=== PATIENT | male | born 1955 | race Caucasian/White ===

== ENCOUNTER 2016-12-16 08:24 | Inpatient (IN) | payer BC ==
[2016-11-17 14:06] VITALS: Ht 180.3 cm; Wt 154.0 kg
--- NOTE | 2016-11-17 14:37 | PAT Medication Instructions ---
Service Date Nov 17, 2016. Current Home Medication List Cyclobenzaprine Hcl (Flexeril), Unknown Dose PO BID Ibuprofen (Advil), 200-600 MG PO Q6 Medication Instructions For Your Scheduled Surgery - Check with surgeon for instructions: Ibuprofen (Advil), 200-600 MG PO Q6 - Hold the following medications the morning of surgery: Cyclobenzaprine Hcl (Flexeril), Unknown Dose PO BID - Take the following medications as scheduled the night before surgery: Cyclobenzaprine Hcl (Flexeril), Unknown Dose PO BID If you have any questions please call us at [phone] (Radha Salinas PA-C) or [phone] or [phone]
[2016-11-17 15:24] LABS: BASO % 0.3 %; BASO ABS # 0.02 K/uL (0-0.2); COMPLETE YES; HEMATOCRIT 41.5 % (42-52); IG% 0.3 %; LYMPH % 28.3 %; LYMPH ABS # 1.99 K/uL (1.2-3.4); MEAN CELL VOLUME 88.1 fL (80-100); MEAN CORPUSCULAR HEMOGLOBIN 29.3 pg (25-34); MEAN CORPUSCULAR HGB CONC 33.3 g/dl (32-36); MEAN PLATELET VOLUME 10.4 fL (7.4-10.4); MONO % 9.1 %; PLATELET COUNT 227 K/uL (130-400); RED BLOOD COUNT 4.71 M/uL (4.7-6.1); WHITE BLOOD COUNT 7.03 K/uL (4.8-10.8)
--- NOTE | 2016-11-17 15:29 | DIAGNOSTIC IMAGING REPORT ---
CHEST PREADMISSION(PA/LAT) CLINICAL HISTORY: Preoperative chest COMPARISON STUDY: No previous studies for comparison. FINDINGS: The cardiac and mediastinal contours are normal. There is no evidence of focal pulmonary consolidation. There is no evidence of failure. No pleural effusions are visualized.[ Slight prominence of the basal markings likely relates to technical factors given the patient's large body habitus. IMPRESSION: No active disease in the chest. Electronically signed by: Justin Forte M.D. 11/17/2016 3:28 PM Dictated Date/Time: 11/17/2016 3:27 PM
[2016-11-17 15:32] LABS: PROTHROMBIN TIME (PATIENT) 10.4 SECONDS (9.0-12.0)
[2016-11-17 15:53] LABS: BUN/CREATININE RATIO 9.9 (10-20); C-REACTIVE PROTEIN 0.32 mg/dl (0-0.29); CALCIUM 8.7 mg/dl (8.5-10.1); CREATININE 0.96 mg/dl (0.60-1.40); POTASSIUM 4.1 mmol/L (3.5-5.1)
--- NOTE | 2016-12-10 16:34 | HISTORY & PHYSICAL EXAMINATION ---
DATE OF ADMISSION: 12/16/2016 CHIEF COMPLAINT: Bilateral knee pain and discomfort, left side greater than right. 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 He has got a 5+ year history of bilateral knee pain and discomfort, left side greater than the right. He has been treated by my partner Dr. Camarillo for this over the past several years. He has had injections and medicines which provided very temporary relief. Pain has become more incapacitating. He has difficulty doing his job. He is not interested in more conservative care and would like to have his left knee replaced. The pain is mostly medial. It is increased with weightbearing. He limps every step and the long of the day goes the more he limps. PAST MEDICAL HISTORY: Obesity with a BMI of 47.4. PAST SURGICAL HISTORY: None. ALLERGIES: None. CURRENT MEDICATIONS: Include unspecified NSAIDS. SOCIAL HISTORY: 61-year-old male patient from [place]. He is . FAMILY HISTORY: Noncontributory. REVIEW OF SYSTEMS: Negative for diabetes, neurologic problems, vascular problems, bleeding disorders. Denies any chest pain or shortness of breath. No history of DVT or PE. PHYSICAL EXAMINATION: GENERAL: Reveals a healthy, pleasant, alert, middle-aged male. He looks to be in good health. HEENT: Benign. NECK: Supple. No lymphadenopathy. LUNGS: Clear to auscultation. HEART: Regular rate and rhythm. ABDOMEN: Soft, nontender, nondistended. EXTREMITIES: Grossly neurovascularly intact except as follows: Examination of both knees reveals the patient walks with a waddling gait. He has got varus alignment to both knees. He does have a little bit of a varus thrust, left side more than the right with weightbearing. Small knee effusions bilaterally. Range of motion is symmetric with 5 degrees short of full extension to 120 degrees of flexion. There is no clinical instability. He has got no pain with hip motion. X-RAYS: X-rays of both knees reveal advanced bilateral knee DJD. He has got complete loss of his medial joint space bilaterally. He has got a little bit of tibial femoral subluxation. He has got osteophytes in the medial compartment. He does have some patella baja. ASSESSMENT: A 61-year-old male with bilateral longstanding knee degenerative joint disease, left side greater than the right. He has failed conservative care and would like to have his left knee replaced. PLAN: We are going to take him to the operating room and do a left total knee replacement. The risks and benefits of this procedure were explained to the patient including but not limited to DVT, PE, , infection, neurological injury, vascular injury, bleeding problem, pain, limited motion, stiffness, failure to relieve symptoms, incomplete relief of symptoms, need for further surgery in the future, fracture, leg length inequality, nerve palsy, need for revision surgery, particularly his young age. The patient understands and desires. Informed consent was obtained. We may put a stem in his tibia due to his large size. We will make that judgment at the time of surgery. The patient had preoperative workup. Chest x-ray showed no acute disease. EKG showed normal sinus rhythm with some occasional premature supraventricular complexes. Labs were all relatively normal. He is planning to be discharged to home and either do home health or outpatient therapy. SARAH
[2016-12-16] VITALS (8 sets, daily range): BP systolic 105–147; BP diastolic 61–83; PULSE 73–97; TEMP 36.4–37.2; O2SAT 93–99
[~2016-12-16] VITALS: Ht 180.3 cm; Wt 154.0 kg
[~2016-12-16 08:24] MED LIST: ACETAMINOPHEN 500 MG TAB PO SCH; BUPIVACAINE 0.25% 30 ML VIAL ONE; BUPIVACAINE 0.5 % 5 MG/1 ML PF 10ML VIAL ONE; BUPIVACAINE LIPOSOME 266 MG, BUPIVACAINE/EPINEPHRINE INJ 50 ML, SODIUM CHLORIDE 0.9% PF... INFIL SCH; CEFAZOLIN 3000 MG/65 ML D5W 65 ML IV SCH; CYCL5TAB PO; FAMOTIDINE 20 MG TAB PO SCH; GABAPENTIN 300 MG CAP PO SCH; IBUP-1050 PO; LACTATED RINGER'S 1000ML 1,000 ML IV SCH; LACTATED RINGER'S 1000ML 500 ML IV ONE; LACTATED RINGER'S 1000ML IV SCH; METOCLOPRAMIDE HCL 10 MG TAB PO SCH; SCOPOLAMINE 1.5 MG TDSY TD SCH; TRANEXAMIC ACID INJ 1,000 MG in SODIUM CHLORIDE 0.9% 100ML 100 ML IV SCH
--- NOTE | 2016-12-16 08:54 | History & Physical Bridge Note ---
H&P Re-Evaluation Bridge Note: I have examined the patient, reviewed the History & Physical and in the interval since the performance of the History & Physical I have noted the following changes of clinical significance: No changes noted
[2016-12-16] MEDS ORDERED: MIDAZOLAM HCL 1 MG/ML 2ML VIAL ONE (09:50)
[2016-12-16] MEDS ORDERED: EpHEDrine SULFATE INJ 50 MG/ML AMP IV PRN (10:30)
[2016-12-16] MEDS ORDERED: ATROPINE SULFATE 0.1 MG/ML 5ML SYR IV PRN (10:30)
[2016-12-16] MEDS ORDERED: PHENYLEPHRINE 100MCG/ML 5ML SYR IV PRN (10:30)
[2016-12-16] MEDS ORDERED: ONDANSETRON INJ 2 MG/ML 2 ML VIAL IV PRN ×2 (10:30→13:00)
[2016-12-16] MEDS ORDERED: HYDROmorphone INJ 2 MG/ML SYR/VIAL IV PRN (10:30)
[2016-12-16] MEDS ORDERED: BUPIVACAINE/EPINEPHRINE 0.25% 1:200,000 30 ML VIAL ONE (10:37)
[2016-12-16] MEDS ORDERED: BACITRACIN 50000 UNIT VIAL ONE (10:37)
[2016-12-16] MEDS ORDERED: SODIUM CHLORIDE 0.9% PF 50 ML VIAL ONE (10:37)
[2016-12-16] MEDS ORDERED: BUPIVACAINE LIPOSOME 1/3% 266 MG/20 ML VIAL INFIL ONE (10:37)
[2016-12-16] MEDS ORDERED: PROPOFOL IV EMULSION 10 MG/ML 20 ML VIAL IV ONE (11:11)
[2016-12-16] MEDS ORDERED: PHENYLEPHRINE 100MCG/ML 5ML SYR ONE (11:11)
[2016-12-16] MEDS ORDERED: LIDOCAINE HCL 2% 2 ML VIAL (20MG/ML) ONE (11:14)
--- NOTE | 2016-12-16 12:47 | [facility] Post Operative Brief Note ---
Immediate Operative Summary Operative Date Dec 16, 2016. Pre-Operative Diagnosis Degenerative joint disease, left knee Post-Operative Diagnosis Same as preop Procedure(s) Performed Left total knee arthroplasty Surgeon Dr. Ramon Home Health Care Coordinator Surgeon(s) Samia Gilman PA-C Estimated Blood Loss 50 cc Findings Left Knee DJD Fluids (cc crystalloids) 1500 Specimens A: left knee bone and tissue Drains None Anesthesia Spinal Complication(s) None Disposition Recovery Room / PACU
[2016-12-16] MEDS ORDERED: DiphenhydrAMINE HCL 50 MG/ML VIAL IV PRN (13:00)
[2016-12-16] MEDS ORDERED: BISACODYL 10 MG SUPP PR PRN (13:00)
[2016-12-16] MEDS ORDERED: ZOLPIDEM TARTRATE 5 MG TAB PO PRN (13:00)
[2016-12-16] MEDS ORDERED: SILVER SULFADIAZINE 1% CR 50 GM JAR EXT PRN (13:00)
[2016-12-16] MEDS ORDERED: METOCLOPRAMIDE HCL INJ 5 MG/ML 2 ML VIAL IV PRN (13:00)
[2016-12-16] MEDS ORDERED: ALUMINUM/MAGNESIUM/SIMETH (MAALOX MAX) 30 ML UDC PO PRN (13:00)
[2016-12-16] MEDS ORDERED: MAGNESIUM HYDROXIDE SUSP 30 ML UDC PO PRN (13:00)
[2016-12-16] MEDS ORDERED: TAMSULOSIN HCL 0.4 MG CAP PO PRN (13:00)
[2016-12-16] MEDS ORDERED: MoRPHine SULFATE 4 MG/ML 1 ML CARP\\VIAL IV PRN (13:00)
--- NOTE | 2016-12-16 13:45 | DIAGNOSTIC IMAGING REPORT ---
LEFT KNEE 1 OR 2 VIEWS ROUTINE CLINICAL HISTORY: AP/LATERAL IN PACU LEFT KNEE postoperative evaluation COMPARISON: None. DISCUSSION: Evidence for a total left knee replacement. Good contact between prosthetic and underlying bone. Expected soft tissue postoperative change IMPRESSION: Anatomic alignment status post total left knee replacement Electronically signed by: Dinesh Fierro M.D. 12/16/2016 1:44 PM Dictated Date/Time: 12/16/2016 1:42 PM
[2016-12-16] MEDS: OXYCODONE HCL IR 5 MG TAB (IMMEDIATE RELEASE) PO PRN ×2 (14:18→19:22)
[2016-12-16] MEDS: D5W AND 1/2NSS + 20MEQ KCL 1,000 ML IV SCH ×2 (15:33→21:49)
[2016-12-16] MEDS: ACETAMINOPHEN 500 MG TAB PO SCH ×2 (15:34→21:49)
[2016-12-16] MEDS: CHECK SCOPOLAMINE PATCH PLACEMENT SCH ×2 (15:34→23:30)
[2016-12-16] MEDS: KETOROLAC TROMETHAMINE 30 MG/ML VIAL IV. SCH ×2 (15:34→21:49)
--- NOTE | 2016-12-16 15:43 | Anesthesiology Progress Note ---
Anesthesia Post Op Note Date & Time Dec 16, 2016 at 15:43 Vital Signs Pain Intensity: 5.0 Vital Signs Past 12 Hours Date Time Temp Pulse Resp B/P Pulse Ox O2 Delivery O2 Flow Rate FiO2 12/16/16 15:13 36.5 87 18 125/77 94 Nasal Cannula 1.5 12/16/16 14:32 36.5 88 17 147/83 99 Room Air 12/16/16 13:45 88 16 132/83 97 Nasal Cannula 2 12/16/16 13:35 86 16 132/76 97 Nasal Cannula 2 12/16/16 13:25 36.3 86 20 119/73 96 Nasal Cannula 2 12/16/16 13:15 89 18 135/61 97 Nasal Cannula 2 12/16/16 13:05 94 16 99/69 95 Nasal Cannula 2 12/16/16 12:55 36.6 93 16 89/62 100 Mask 10 12/16/16 08:56 36.8 86 16 132/81 94 Room Air Notes Mental Status: alert / awake / arousable, participated in evaluation Pt Amnestic to Procedure: Yes Nausea / Vomiting: adequately controlled Pain: adequately controlled Airway Patency, RR, SpO2: stable & adequate BP & HR: stable & adequate Hydration State: stable & adequate Anesthetic Complications: no major complications apparent
[2016-12-16] MEDS: FERROUS GLUCONATE 324 MG TAB PO SCH (17:59)
[2016-12-16] MEDS: CEFAZOLIN IV 2,000 MG in DEXTROSE 5% 50ML 50 ML IV SCH (18:00)
[2016-12-16] MEDS ORDERED: TRANEXAMIC ACID INJ 1,000 MG in SODIUM CHLORIDE 0.9% 100ML 100 ML IV SCH (19:00)
--- NOTE | 2016-12-16 19:33 | OPERATIVE REPORT ---
DATE OF OPERATION: 12/16/2016 SURGEON: Larry Ramon MD FORENSIC ACCOUNTANT: CALRA Prabhakar PREOPERATIVE DIAGNOSIS: Left knee degenerative joint disease. POSTOPERATIVE DIAGNOSIS: Same. PROCEDURE PERFORMED: Left cemented posterior stabilized total knee arthroplasty. COMPLICATIONS: None. ESTIMATED BLOOD LOSS: 50 mL. FLUID REPLACEMENT: 1500 mL crystalloid fluid replacement. TOURNIQUET TIME: 60 minutes at 350 mmHg. ANESTHESIA: Spinal with adductor canal block. DRAINS: None. SPECIMENS: Left knee sent for pathology. OPERATIVE INDICATIONS: The patient is a 61-year-old male who has had a fairly long history of bilateral knee pain and discomfort, left side a bit worse than the right. He has been through extensive conservative treatment by my partner, Dr. Camarillo. He failed conservative care. He was not interested in any further conservative management. He elected to do a left total knee replacement. OPERATIVE FINDINGS: Operative findings revealed advanced left knee DJD. 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 He had a fixed varus deformity to his knee. Moderate-sized joint effusion. Large soft tissue envelope. OPERATIVE IMPLANTS: Operative implants consisted of: 1. Biomet Vanguard size 65 left posterior stabilized femoral component. 2. Biomet size 75 tibial tray. 3. A 10-mm posterior stabilized polyethylene insert. 4. A 31 x 8 all poly patella. OPERATIVE PROCEDURE: The patient was taken to the operating room, identified and placed on the operating table in supine position. All contact areas were appropriately padded. IV antibiotics were provided by the anesthesia team. A spinal anesthetic and adductor canal block had been provided by the anesthesia team in the holding area. A Vance catheter was placed in sterile fashion. Left thigh tourniquet was then placed and left lower extremity was then prepped and draped in the usual sterile fashion. The left leg was elevated and exsanguinated using Esmarch and tourniquet was placed at 350 mmHg. An anterior approach of the left knee was then performed through a longitudinal incision centered over the patella. Sharp dissection was carried out through the subcutaneous tissues down to the level of the extensor mechanism. A medial parapatellar arthrotomy incision was made. Of note, his quad tendon was extremely short and small, only a couple of centimeters in length. I did extend this up into the muscle as a result. Some subperiosteal dissection was carried out medially. The fat pad was resected from beneath the patellar tendon. The lateral patellofemoral ligament was released. The patella was everted and the knee was flexed. The osteophytes were taken off the distal femur. The ACL and PCL were then released from the distal femur and the tibia subluxated anteriorly. The external tibial alignment jig was then placed in the anterior face of the tibia and adjusted 14 mm medially. Proximal tibial cut was made to remove about 2 mm of bone from the most deficient aspect of the medial tibial plateau. The tibia was then sized to a size 75. Some osteophytes were taken off medial and posteromedially. Attention was then drawn to the femur. The distal femur was entered with a sharp drill bit. Intramedullary canal was suctioned. A left 6-degree valgus cutting guide was placed. Distal femoral cutting block was pinned in place. Distal femoral cut was made to take an additional 3 mm of bone off the distal femur. We tried to minimize his distal cut due to its patella baja. The femur was then sized to a size 65. We did downsize this just slightly. The AP cutting block was pinned parallel to the epicondylar axis, which was 4 degrees of external rotation. The anterior cut, anterior chamfer, posterior cut, and posterior chamfer cuts were made. Box cutting guide was placed and adjusted slightly lateral and the box cut was made. The knee was flexed. The remnants of the medial and lateral menisci were excised. The osteophytes were taken off the posterior aspect of the femur. A trial femoral component was placed. Tibial tray was pinned in maximum external rotation and drill and stem punch were used to create defect in proximal tibia for the tibial tray. The knee was then trialed and the 10-mm insert fit most appropriately. Attention was then drawn to the patella. The patella was cleaned of all soft tissues. Patella thickness measured 22 mm in thickness and was cut down to 14. It was sized to a size 31 patella. Of note, the patella was very short in its superior to inferior directions and very oblong. We did not have to downsize this as a result. We drilled for the 31 patella. Lateral osteophyte was removed. Patella button was placed. Knee was taken through range of motion and the patella tracked well with no thumbs test. Attention was then drawn toward placement of permanent components. All trial components were removed. A bone plug was placed in the distal femur to limit blood loss. A double batch of Palacos G cement was mixed. A left size 65 posterior stabilized femoral component, size 75 tibial tray, a 10-mm stable posterior stabilized polyethylene insert, and a 31 x 8 all poly patella then cemented in place. Knee was brought out into full extension until cement hardened. A final cement check was then performed. The pericapsular tissues were injected with 100 mL of a combination of 20 mL of Exparel, 30 mL of normal saline, and 50 mL of 0.25% Marcaine with epinephrine. The patient did receive 1 gram of tranexamic acid. The tourniquet was let down for final tourniquet time of 60 minutes. Hemostasis was assured with use of electrocautery. The wound was once again irrigated. The extensor mechanism was then closed with a combination of #1 PDS suture and #1 Vicryl suture in a [id number] fashion. The extensor mechanism was checked and found to be intact. The subcutaneous tissues were then closed with 2-0 Dexon suture in a buried interrupted fashion. Skin was closed skin mary. Leg was then cleaned and dried and a sterile dressing with Xeroform, 4 x 4's, sterile cast padding and an Henrik bandage were applied. The patient was then transferred to the recovery room in stable condition. The patient tolerated the procedure well with no complications. All needle and sponge counts were correct at the end of the operation. I attest to the content of the Intraoperative Record and any orders documented therein. Any exceptio ns are noted below.
[2016-12-16] MEDS: ASPIRIN 325 MG ECTAB PO SCH (20:59)
[2016-12-16] MEDS: DOCUSATE SODIUM 100 MG CAP PO SCH (21:00)
[2016-12-16] MEDS: TAPENTADOL ER 50 MG TABCR PO SCH (21:00)
[2016-12-17] MEDS: CEFAZOLIN IV 2,000 MG in DEXTROSE 5% 50ML 50 ML IV SCH (01:51)
[2016-12-17 03:14] VITALS: BP 115/68; PULSE 80; TEMP 37; O2SAT 94
[2016-12-17] MEDS: D5W AND 1/2NSS + 20MEQ KCL 1,000 ML IV SCH ×2 (03:49→11:00)
[2016-12-17] MEDS: KETOROLAC TROMETHAMINE 30 MG/ML VIAL IV. SCH ×5 (03:49→21:42)
[2016-12-17] MEDS: ACETAMINOPHEN 500 MG TAB PO SCH ×3 (05:39→21:42)
[2016-12-17 06:30] LABS: HEMATOCRIT 38.8 % (42-52); MEAN CELL VOLUME 89.2 fL (80-100); MEAN CORPUSCULAR HEMOGLOBIN 29.4 pg (25-34); MEAN PLATELET VOLUME 10.4 fL (7.4-10.4); PLATELET COUNT 227 K/uL (130-400); RED BLOOD COUNT 4.35 M/uL (4.7-6.1); WHITE BLOOD COUNT 8.28 K/uL (4.8-10.8)
[2016-12-17 07:05] LABS: BUN/CREATININE RATIO 15.1 (10-20); CALCIUM 8.2 mg/dl (8.5-10.1); POTASSIUM 4.2 mmol/L (3.5-5.1)
[2016-12-17 07:56] VITALS: BP 120/70; PULSE 87; TEMP 36.7; O2SAT 94
[2016-12-17] MEDS: CHECK SCOPOLAMINE PATCH PLACEMENT SCH ×2 (08:00→15:10)
[2016-12-17] MEDS ORDERED: OXYC-57 PO (09:00)
[2016-12-17] MEDS ORDERED: MORP15TA19 PO (09:00)
[2016-12-17] MEDS ORDERED: ASPEC325 PO (09:00)
[2016-12-17] MEDS: ASPIRIN 325 MG ECTAB PO SCH ×2 (09:01→21:40)
[2016-12-17] MEDS: MULTIVITAMIN TAB PO SCH (09:01)
[2016-12-17] MEDS: DOCUSATE SODIUM 100 MG CAP PO SCH ×2 (09:01→21:40)
[2016-12-17] MEDS: PANTOprazole SOD 40 MG TAB PO SCH (09:01)
[2016-12-17] MEDS: FERROUS GLUCONATE 324 MG TAB PO SCH ×3 (09:02→18:35)
--- NOTE | 2016-12-17 09:03 | Discharge Instructions ---
Discharge Instructions Admission Reason for Admission: Left Knee Osteoarthritis, Knee Pain Discharge Discharge Diagnosis / Problem: Left Knee Replacement Discharge Goals Goal(s): Decrease discomfort, Improve function, Increase independence, Improve disease control, Therapeutic intervention Activity Recommendations Activity Limitations: per Instructions/Follow-up section Weightbearing Status: Left weightbearing . Instructions / Follow-Up Instructions / Follow-Up ACTIVITY RECOMMENDATIONS: Physical Therapy: * You will go to physical therapy three times each week for four to six weeks after your surgery in order to regain your knee range of motion and to retrain your knee to work properly. * It is just as important to make sure you are getting your knee perfectly straight as it is to regain your knee bend. * Taking a pain pill an hour before therapy can help you have a more productive and comfortable therapy session. Home Exercise: * You were shown a series of exercises (heel props, heel slides, etc.) in the hospital. Do these exercises three to four times each day including the exercises you were shown in physical therapy. Walking: * Get up and walk several times each day. For the first four weeks, try not to stand or walk for more than one hour at a time. If you do stand or walk for more than one hour, you will not hurt anything, but your knee and leg will likely swell. * As you feel comfortable, you may change from the walker or crutches to a cane and then to independent walking. MEDICATIONS: New Medicine: * You will likely be taking one or more of these medications: 1. MS Contin - A long-acting pain medication. Take 1 tablet twice a day for the first ten days to decrease your baseline level of pain. 2. Percocet - A quick and shorter-acting pain medication. Take one to two tablets every four to six hours to lessen your pain. 3. Aspirin - Thins your blood to lessen the chance of forming a blood clot. * The most common side effects of pain medicine and iron are nausea and constipation. If nausea or constipation is too much of a problem or if you have any questions about your new medicines or doses, call [facility] at . We will try to help you manage these issues. VERY IMPORTANT TO READ AND REVIEW" Pain: * The immediate post-operative period after knee replacement surgery is often quite painful. * You are given a prescription for pain medicine. You should take it, as directed, when you need it, especially before physical therapy and before going to bed. Pain that interferes with sleep is very common and can last several months. * You will likely need pain medicine for the first four to six weeks. It will not stop all of the pain. The pain will lessen and as you feel better, you may change to milder pain medicine such as Tylenol. * The most common side effects of pain medicine are nausea and constipation, so don't take more than you need. SPECIAL CARE INSTRUCTIONS: TEDs/Elastic Stockings: * The white elastic stockings help limit swelling and prevent blood clots from forming in your legs. The more you wear them, the more they work. * Wear them for six weeks after knee replacement surgery and four weeks after partial knee replacement. Prevention of Infection: * Take antibiotics one hour before any dental cleaning, dental work, urological procedure, gastrointestinal procedure or any invasive surgery in order to prevent your new joint from getting infected. * You may get the antibiotics from the doctor performing the procedure or you may call our office at before and we will call in a prescription to the pharmacy of your choice. Things to Watch For: * Drainage from the incision site that occurs more than one week after your surgery. * Severely increased knee/leg pain or swelling. * Increased redness at the incision site. * Fever above 102 degrees Fahrenheit. * Unusual chest pain or shortness of breath. * Unusual pain or burning with urination. Call [facility] at with any of the above problems or if you have any questions about your medicines or recovery. FOLLOW UP VISIT: Make an appointment to see your doctor for approximately two weeks after surgery for a progress check and staple removal by calling the office at . Current Hospital Diet Patient's current hospital diet: Regular Diet Discharge Diet Recommended Diet: Regular Diet Procedures Procedures Performed: Left total knee arthroplasty Pending Studies Studies pending at discharge: no Medical Emergencies . Who to Call and When: Medical Emergencies: If at any time you feel your situation is an emergency, please call [phone] immediately. . Non-Emergent Contact Non-Emergency issues call your: Surgeon . "Provider Documentation" section prepared by Larry Ramon. VTE Core Measure Inpt VTE Proph given/why not?: Other Anticoagulation, T.E.D. Stockings, SCD's
[2016-12-17] MEDS: TAPENTADOL ER 50 MG TABCR PO SCH ×2 (09:04→21:40)
[2016-12-17] MEDS: OXYCODONE HCL IR 5 MG TAB (IMMEDIATE RELEASE) PO PRN ×3 (09:06→21:41)
[2016-12-17 10:15] VITALS: BP 129/76; PULSE 84; O2SAT 98
[2016-12-17 11:53] VITALS: BP 125/80; PULSE 72; TEMP 36.4; O2SAT 91
[2016-12-17 14:58] VITALS: BP 128/79; PULSE 87; TEMP 36.5; O2SAT 98
--- NOTE | 2016-12-17 19:34 | PROGRESS NOTE ---
DATE: 12/17/2016 SUBJECTIVE: A 61-year-old white male, postop day #1 from a left knee replacement. He is doing well. Therapy has gone well. Pain is controlled. He denies any chest pain or shortness of breath. Not feeling dizzy or lightheaded. OBJECTIVE: VITAL SIGNS: Temperature 36.5. Vital signs are stable. GENERAL: Reveals a healthy, pleasant, middle-aged male. He is sitting up in bed and I had to wake him this evening when I visited him. LUNGS: Clear to auscultation. HEART: Regular rate and rhythm. ABDOMEN: Soft, nontender, nondistended. EXTREMITIES: Grossly neurovascularly intact except as follows: Examination of the left lower extremity reveals the leg to be well aligned. He can dorsiflex and plantarflex his foot appropriately. He is neurologically intact. The dressing is clean, dry and intact. LABORATORIES: Hemoglobin 12.8, hematocrit 38.8. Electrolytes are stable. ASSESSMENT: A 61-year-old gentleman postoperative day #1 from a left knee replacement, doing pretty well. Pain is controlled. Therapy went well. PLAN: 1. DVT prophylaxis including thigh-high TEDs, SCDs and aspirin twice a day. 2. PT/OT. Weight-bear as tolerated. Left total knee protocol. 3. Pain control, doing well with current pain regimen. 4. Disposition: Plan to discharge to home with some home health once adequately recovered.
[2016-12-17 23:07] VITALS: BP 138/79; PULSE 99; TEMP 36.9; O2SAT 97
[2016-12-18] MEDS: CHECK SCOPOLAMINE PATCH PLACEMENT SCH (00:14)
[2016-12-18] MEDS: KETOROLAC TROMETHAMINE 30 MG/ML VIAL IV. SCH ×2 (03:57→09:18)
[2016-12-18] MEDS: ACETAMINOPHEN 500 MG TAB PO SCH (05:30)
--- NOTE | 2016-12-18 07:14 | PROGRESS NOTE ---
DATE: 12/18/2016 SUBJECTIVE: 61-year-old gentleman postop day 2 from a left total knee replacement. He is doing pretty well. Pain is controlled. Denies any chest pain or shortness of breath. OBJECTIVE: VITAL SIGNS: Temperature 36.9. Vital signs stable. PHYSICAL EXAMINATION: EXTREMITIES: Examination of leg reveals the patient is sitting up in his bedside chair working on his exercises. Dressing is clean, dry, and intact. He is neurologically intact. ASSESSMENT: 61-year-old gentleman postop day 2 from a left knee replacement, doing pretty well. PLAN: 1. DVT prophylaxis including thigh-high TEDs, SCDs, and aspirin twice a day. 2. PT/OT. Weightbearing as tolerated. Left total knee protocol. 3. Pain control, doing pretty well with current pain regimen. 4. Disposition: He is planning to be discharged to home with some home health.
[2016-12-18 07:15] VITALS: BP 155/89; PULSE 97; TEMP 36.5; O2SAT 93
[2016-12-18] MEDS: OXYCODONE HCL IR 5 MG TAB (IMMEDIATE RELEASE) PO PRN (07:24)
[2016-12-18] MEDS: MULTIVITAMIN TAB PO SCH (08:31)
[2016-12-18] MEDS: FERROUS GLUCONATE 324 MG TAB PO SCH (08:31)
[2016-12-18] MEDS: PANTOprazole SOD 40 MG TAB PO SCH (08:31)
[2016-12-18] MEDS: TAPENTADOL ER 50 MG TABCR PO SCH (08:33)
[2016-12-18] MEDS: ASPIRIN 325 MG ECTAB PO SCH (09:18)
[2016-12-18] MEDS: DOCUSATE SODIUM 100 MG CAP PO SCH (09:18)
[2016-12-18 10:07] VITALS: BP 155/89; PULSE 97; TEMP 36.5; O2SAT 93
--- NOTE | 2016-12-24 14:18 | DISCHARGE SUMMARY ---
ADMITTING PHYSICIAN AND SURGEON: Dr. Ramon. ADMITTING DIAGNOSIS: Left knee degenerative joint disease. SURGERY PERFORMED: Left total knee arthroplasty. SECONDARY DIAGNOSES: Obesity. HISTORY AND PHYSICAL EXAM: Well documented in patient's chart. CONSULTS: None obtained. HOSPITAL COURSE: The patient was admitted on 12/16/2016 underwent total knee arthroplasty, tolerated the procedure well. There were no complications. He was transferred to the PACU postoperatively and later to the orthopedic floor for further care. He was given Ancef for antibiotic prophylaxis, LESLIE stockings, SCDs and aspirin for DVT prophylaxis. Hemoglobin, hematocrit and vital signs were monitored during his hospital stay and remained stable, did not require any blood transfusions. There were no complications. By postoperative day 2, he was tolerating a general diet. Pain was controlled with oral pain medicine. He was participating in physical therapy and had no signs or symptoms of deep vein thrombosis. On postoperative day 2, he was discharged home in good condition, set up with home health services. He was given printed discharge instructions including prescriptions for aspirin 325 mg b.i.d., MS Contin and Percocet. Continue his home medications, continue physical therapy, weightbearing as tolerated, LESLIE stockings. Follow up in 10-12 days or sooner if there are problems or concerns.
== END 2016-12-18 12:36 | disposition home health service (06) | DRG 470 ==
LOC: ENRESERVDT → ENRESERVTM → C.ACU 08:24 → C.3E 08:35
PROVIDERS: ADMIT Orthopaedic Surgery Sports Medicine; ATTEND Orthopaedic Surgery Sports Medicine
PROC: 0SRD0J9 Replacement of Left Knee Joint with Synthetic Substitute, Cemented, Open Approach (ICD-10-PCS; principal; 2016-12-16 10:40)
DX: M17.0 Bilateral primary osteoarthritis of knee (principal); Z68.42 Body mass index [BMI] 45.0-49.9, adult; M25.462 Effusion, left knee; M25.461 Effusion, right knee; M21.162 Varus deformity, not elsewhere classified, left knee; E66.01 Morbid (severe) obesity due to excess calories